=== PATIENT | male | born 1980 | race Caucasian/White ===

== ENCOUNTER 2018-12-01 23:46 | Emergency (ER) | payer MEDICAID ==
[~2018-12-01] VITALS: Ht 182.9 cm; Wt 100.0 kg
[2018-12-02] MEDS ORDERED: LIDOCAINE HCL 1% 20ML VIAL (Pyxis) INJ INFIL ONE (00:30)
[2018-12-02] MEDS ORDERED: TETANUS AND DIPHTHERIA TOX/PF 0.5ML SYR (ADULT) IM ONE (00:30)
[2018-12-02] MEDS ORDERED: KETOROLAC 15MG/ML VIAL IM ONE (00:30)
[2018-12-02 04:41] VITALS: BP 112/85
== END 2018-12-02 05:32 | disposition home or self-care (01) ==
LOC: ER 23:46
DX: S01.511A Laceration without foreign body of lip, initial encounter (principal); S09.8XXA Other specified injuries of head, initial encounter; R10.9 Unspecified abdominal pain; H40.9 Unspecified glaucoma; Y08.89XA Assault by other specified means, initial encounter; Y93.89 Activity, other specified; Y92.89 Other specified places as the place of occurrence of the external cause; Y99.8 Other external cause status
CPT/HCPCS: 12011; 90471; 90714; 96372; 99283; J1885; J3490; Z7610